=== PATIENT | female | born 1945 | race Caucasian/White ===

== ENCOUNTER 2025-01-28 17:11 | Emergency (ER) | payer MEDICARE, MEDICAID ==
[~2025-01-28] VITALS: Ht 165.1 cm; Wt 69.0 kg
[2025-01-28 17:19] VITALS: BP 0/0; PULSE 0; RESP 0; O2SAT 0
== END 2025-01-28 20:00 ==
LOC: ER 17:11
DX: I46.9 Cardiac arrest, cause unspecified (principal); N18.6 End stage renal disease; Z66 Do not resuscitate
CPT/HCPCS: 99285